=== PATIENT | female | born 2000 ===

== ENCOUNTER 2024-02-25 | Inpatient (IN) | payer MEDICAID ==
[2024-02-25] MEDS ORDERED: Magnesium Sulfate/Water 4 GM in Premix Bag 1 BAG IV ONE (15:29)
[2024-02-25] MEDS ORDERED: Sodium Chloride 0.9% 10 ML Syringe FLUSH PRN (15:29)
[2024-02-25] MEDS ORDERED: Calcium Gluconate 10% 1 GM/10 ML SDV IV PRN (15:29)
[2024-02-25] MEDS ORDERED: Sodium Chloride 0.9% 2.5 ML Syringe FLUSH PRN (15:29)
[2024-02-25] MEDS ORDERED: Sodium Chloride 0.9% 20 ML SDV IV PRN (15:29)
[2024-02-25 16:59] LABS: APPEARANCE,URINE CLEAR; BILIRUBIN,URINE NEGATIVE (NEGATIVE); COLOR,URINE YELLOW; GLUCOSE,URINE NEGATIVE (NEGATIVE); KETONES,URINE NEGATIVE (NEGATIVE); LEUKOCYTE ESTERASE,URINE NEGATIVE (NEGATIVE); NITRITE,URINE NEGATIVE (NEGATIVE); OCCULT BLOOD,URINE TRACE-INTACT (NEGATIVE); PH,URINE 6.5 (5.0-8.0); PROTEIN,URINE 100 mg/dL (NEGATIVE); UROBILINOGEN,URINE 0.2 EU/dL (<2.0)
[2024-02-25 16:59] LABS: HEMATOCRIT 35.6 % (37.0-47.0); HEMOGLOBIN 11.4 g/dL (12.0-16.0); MEAN CORPUSCULAR HEMOGLOBIN 25.2 pg (28.0-32.0); MEAN CORPUSCULAR VOLUME 78.8 fL (83.0-99.0); PLATELET COUNT,PLT 189 K/uL (150-400); RED BLOOD CELL COUNT 4.52 M/uL (4.10-5.30); WHITE BLOOD CELL COUNT,WBC 10.36 K/uL (3.9-11.3)
[2024-02-25 17:04] LABS: BACTERIA,URINE FEW (NEGATIVE); EPITHELIAL CELLS,URINE OCCASIONAL (NONE-FEW); RBC,URINE 0-2 (0-2/HPF); WBC,URINE 0-2 (0-5/HPF)
[2024-02-25 17:23] LABS: A/G RATIO 0.5 (0.9-1.6); ALBUMIN 2.2 g/dL (3.4-5.0); BILIRUBIN TOTAL 0.3 mg/dL (0.2-1.0); CALCIUM 9.2 mg/dL (8.5-10.1); CARBON DIOXIDE,CO2 23.4 mmol/L (21.0-32.0); CREATININE 0.7 mg/dL (0.6-1.0); EST CRCL DRUG DOSING (CG) 120.51 mL/min; POTASSIUM,K 4.4 mmol/L (3.5-5.1); PROTEIN TOTAL,TP 6.6 g/dL (6.4-8.2); URIC ACID 4.6 mg/dL (2.6-7.2)
[2024-02-25 17:37] LABS: CREATININE,URINE RAND 49.5 mg/dL
[2024-02-25 17:45] LABS: PROTEIN CREATININE RATIO,URINE 6.5; PROTEIN,URINE RANDOM 320.3 mg/dL (<11.9)
[2024-02-25] MEDS: Labetalol 100 MG/20 ML MDV IVPUSH PRN (17:56)
[2024-02-25] MEDS ORDERED: Magnesium Sulfate/Water 100 ML ONE (18:05)
[2024-02-25] MEDS ORDERED: Magnesium Sulfate/Water 50 ML ONE (18:05)
[2024-02-25] MEDS: Magnesium Sulfate/Water 6 GM in Premix Bag 1 BAG IV ONE (18:14)
[2024-02-25] MEDS: Lactated Ringers 1,000 ML IV SCH (18:15)
[2024-02-25] MEDS ORDERED: Terbutaline 1 MG/ML SDV SUBCUT PRN (18:34)
[2024-02-25] MEDS ORDERED: Methylergonovine 0.2 MG/1 ML Amp IM PRN (18:35)
[2024-02-25] MEDS ORDERED: Ondansetron 4 MG/2 ML SDV IVPUSH PRN (18:35)
[2024-02-25] MEDS ORDERED: Misoprostol 200 MCG Tab PO PRN (18:35)
[2024-02-25] MEDS ORDERED: Lidocaine 1% 50 ML MDV INJECT PRN (18:35)
[2024-02-25] MEDS ORDERED: Water For Irrigation,Sterile 1,000 ML Container IRR PRN (18:35)
[2024-02-25] MEDS ORDERED: Oxytocin/0.9 % Sodium Chloride 30 UNIT/500 ML BAG IV SCH ×3 (18:45→19:15)
[2024-02-25] MEDS: Magnesium Sulfate/Water 20 GM/500 ML BAG IV SCH (18:50)
[2024-02-25] MEDS: Misoprostol 25 MCG (1/4 of 100 MCG) Tab VAG PRN (19:24)
[2024-02-26] MEDS: Acetaminophen 1,000 MG in Premix Bag 1 BAG IV ONE (08:31)
[2024-02-26] MEDS: Lactated Ringers 1,000 ML IV SCH (08:45)
[2024-02-26] MEDS: Ampicillin 2 GM in Sodium Chloride 0.9% 100 ML IV ONE (08:45)
[2024-02-26] MEDS: Oxytocin/0.9 % Sodium Chloride 30 UNIT/500 ML BAG IV SCH (08:50)
[2024-02-26] MEDS: Butorphanol 2 MG/ML SDV IVPUSH PRN (09:20)
[2024-02-26 11:08] LABS: GROUP B STREP BY PCR POSITIVE (NEGATIVE)
[2024-02-26] MEDS: Tranexamic Acid IN NACL,ISO-OS 1,000 MG in Premix Bag 1 BAG IV PRN (11:40)
[2024-02-26] MEDS: Carboprost Tromethamine 250 MCG/1 mL Vial IM PRN (11:40)
[2024-02-26] MEDS ORDERED: Ampicillin 1 GM in Sodium Chloride 0.9% 50 ML IV SCH (12:45)
[2024-02-26 12:50] LABS: HEMATOCRIT 32.1 % (37.0-47.0); HEMOGLOBIN 10.3 g/dL (12.0-16.0); MEAN CORPUSCULAR HGB CONC 32.1 g/dL (32.0-36.0); MEAN CORPUSCULAR VOLUME 77.9 fL (83.0-99.0); PLATELET COUNT,PLT 179 K/uL (150-400); RED BLOOD CELL COUNT 4.12 M/uL (4.10-5.30); WHITE BLOOD CELL COUNT,WBC 14.63 K/uL (3.9-11.3)
[2024-02-26 13:07] LABS: INR < 0.93 (0.86-1.11); PTT,PARTIAL THROMBOPLSTIN TIME 24.4 SEC (23.9-30.7)
[2024-02-26 13:25] LABS: A/G RATIO 0.4 (0.9-1.6); ALBUMIN 1.9 g/dL (3.4-5.0); BILIRUBIN TOTAL 0.2 mg/dL (0.2-1.0); CALCIUM 8.6 mg/dL (8.5-10.1); CARBON DIOXIDE,CO2 18.9 mmol/L (21.0-32.0); CREATININE 0.9 mg/dL (0.6-1.0); EST CRCL DRUG DOSING (CG) 93.73 mL/min; POTASSIUM,K 3.8 mmol/L (3.5-5.1); PROTEIN TOTAL,TP 6.2 g/dL (6.4-8.2)
[2024-02-26] MEDS ORDERED: oxyCODONE 5 MG Tab PO PRN ×2 (13:52→16:10)
[2024-02-26] MEDS ORDERED: Acetaminophen 500 MG Tab PO PRN (13:52)
[2024-02-26] MEDS ORDERED: Lanolin 100% Cream 7 GM Tube TOP PRN ×2 (13:52→16:10)
[2024-02-26] MEDS ORDERED: Docusate Sodium 100 MG Cap PO PRN ×2 (13:52→16:10)
[2024-02-26] MEDS: Loperamide 2 MG Cap PO PRN (15:08)
[2024-02-26] MEDS: Ibuprofen 800 MG Tab PO PRN (15:08)
[2024-02-26] MEDS: Benzocaine/Menthol 20%-0.5% Spray 78 GM Cannister TOP PRN (15:12)
[2024-02-26] MEDS: Witch Hazel Medicated Pads 40/Jar TOP PRN (15:13)
[2024-02-26 15:49] LABS: PH,UMBILICAL ARTERIAL 7.175 (7.18-7.38)
[2024-02-26 15:50] LABS: PH,UMBILICAL VENOUS 7.188 (7.25-7.45)
[2024-02-26] MEDS ORDERED: Witch Hazel Medicated Pads 40/Jar TOP PRN (16:10)
[2024-02-26] MEDS: NIFEdipine 30 MG Tab.ER PO ONE (16:13)
[2024-02-27] MEDS: Ibuprofen 800 MG Tab PO PRN (05:36)
[2024-02-27 05:41] LABS: HEMATOCRIT 26.5 % (37.0-47.0); HEMOGLOBIN 8.5 g/dL (12.0-16.0); MEAN CORPUSCULAR HEMOGLOBIN 25.2 pg (28.0-32.0); MEAN CORPUSCULAR HGB CONC 32.1 g/dL (32.0-36.0); MEAN CORPUSCULAR VOLUME 78.6 fL (83.0-99.0); MEAN PLATELET VOLUME 13.7 fL (9.4-12.3); PLATELET COUNT,PLT 172 K/uL (150-400); RED BLOOD CELL COUNT 3.37 M/uL (4.10-5.30); WHITE BLOOD CELL COUNT,WBC 16.92 K/uL (3.9-11.3)
[2024-02-27 06:02] LABS: A/G RATIO 0.5 (0.9-1.6); ALBUMIN 1.9 g/dL (3.4-5.0); BILIRUBIN TOTAL 0.2 mg/dL (0.2-1.0); CALCIUM 8.7 mg/dL (8.5-10.1); CARBON DIOXIDE,CO2 23.6 mmol/L (21.0-32.0); CREATININE 0.8 mg/dL (0.6-1.0); EST CRCL DRUG DOSING (CG) 105.45 mL/min; POTASSIUM,K 3.9 mmol/L (3.5-5.1); PROTEIN TOTAL,TP 5.9 g/dL (6.4-8.2)
[2024-02-27 07:02] LABS: LYMPHOCYTES ABSOLUTE MAN 1.35 K/uL (1.00-4.80); LYMPHOCYTES PERCENT MAN 8 % (24-44)
[2024-02-27 07:03] LABS: BASOPHILS ABSOLUTE MAN 0.17 K/uL (0.00-0.20); BASOPHILS PERCENT MAN 1 % (0-1); EOSINOPHILS ABSOLUTE MAN 0.17 K/uL (0.00-0.45); EOSINOPHILS PERCENT MAN 1 % (0-6); MONOCYTES ABSOLUTE MAN 1.35 K/uL (0.00-0.80); MONOCYTES PERCENT MAN 8 % (0-8); SEG NEUTROPHILS ABSOLUTE MAN 13.87 K/uL (1.80-7.70); SEG NEUTROPHILS PERCENT MAN 82 % (41-71)
[2024-02-27] MEDS: Sodium Ferric Gluconate Cmplex 125 MG in Sodium Chloride 0.9% 100 ML IV SCH (13:55)
[2024-02-27] MEDS: NIFEdipine 30 MG Tab.ER PO SCH (16:30)
[2024-02-27 17:38] LABS: HEMOGLOBIN 8.7 g/dL (12.0-16.0); MEAN CORPUSCULAR HEMOGLOBIN 25.5 pg (28.0-32.0); MEAN CORPUSCULAR HGB CONC 32.2 g/dL (32.0-36.0); MEAN CORPUSCULAR VOLUME 79.2 fL (83.0-99.0); MEAN PLATELET VOLUME 13.2 fL (9.4-12.3); PLATELET COUNT,PLT 179 K/uL (150-400); RED BLOOD CELL COUNT 3.41 M/uL (4.10-5.30); WHITE BLOOD CELL COUNT,WBC 16.21 K/uL (3.9-11.3)
[2024-02-27 18:00] LABS: A/G RATIO 0.5 (0.9-1.6); BILIRUBIN TOTAL 0.2 mg/dL (0.2-1.0); CALCIUM 8.6 mg/dL (8.5-10.1); CARBON DIOXIDE,CO2 25.5 mmol/L (21.0-32.0); EST CRCL DRUG DOSING (CG) 84.36 mL/min; POTASSIUM,K 3.8 mmol/L (3.5-5.1); PROTEIN TOTAL,TP 6.3 g/dL (6.4-8.2)
[2024-02-28] MEDS: NIFEdipine 30 MG Tab.ER PO SCH (11:08)
[2024-02-28] MEDS: Acetaminophen 500 MG Tab PO PRN (15:37)
[2024-02-29 06:44] LABS: HEMATOCRIT 26.1 % (37.0-47.0); HEMOGLOBIN 8.4 g/dL (12.0-16.0); MEAN CORPUSCULAR HEMOGLOBIN 25.5 pg (28.0-32.0); MEAN CORPUSCULAR HGB CONC 32.2 g/dL (32.0-36.0); MEAN CORPUSCULAR VOLUME 79.1 fL (83.0-99.0); MEAN PLATELET VOLUME 13.6 fL (9.4-12.3); NRBC ABSOLUTE 0.02 K/uL (0.00-0.02); NRBC PERCENT 0.1 /100WBC (0.0-0.2); PLATELET COUNT,PLT 194 K/uL (150-400)
== END 2024-02-29 11:40 | disposition home or self-care (01) | DRG 806 ==
LOC: MW.CHOBGYN → MW.OBCHECK → MW.OB 15:28 → MW.OBCHECK 18:57 → MW.OB 18:58 → OBSVTOIN 02-26 11:28 → MW.OB 02-26 17:41
PROVIDERS: ADMIT Obstetrics & Gynecology; ATTEND Obstetrics & Gynecology
PROC: 10D07Z6 Extraction of Products of Conception, Vacuum, Via Natural or Artificial Opening (ICD-10-PCS; principal; 2024-02-26)
PROC: 0KQM0ZZ Repair Perineum Muscle, Open Approach (ICD-10-PCS; 2024-02-26)
PROC: 3E0P7VZ Introduction of Hormone into Female Reproductive, Via Natural or Artificial Opening (ICD-10-PCS; 2024-02-26)
PROC: 3E0334Z Introduction of Serum, Toxoid and Vaccine into Peripheral Vein, Percutaneous Approach (ICD-10-PCS; 2024-02-27)
DX: O24.420 Gestational diabetes mellitus in childbirth, diet controlled (principal); O72.1 Other immediate postpartum hemorrhage; Z37.0 Single live birth; O14.14 Severe pre-eclampsia complicating childbirth; O70.1 Second degree perineal laceration during delivery; Z3A.37 37 weeks gestation of pregnancy; O26.893 Other specified pregnancy related conditions, third trimester; O99.214 Obesity complicating childbirth; Z67.21 Type B blood, Rh negative
CPT/HCPCS: 36415; 51702; 59025; 59409; 80053; 81001; 82570; 82803; 83735; 84156; 84550; 85025; 85027; 85384; 85460; 85610; 85730; 86592; 86850; 86900; 86901; 87653; A9270-GY; J0131; J0290; J0595; J1921; J2590; J2790; J2916; J3475; J3490; J7120